=== PATIENT | male | born 1980 | race Caucasian/White ===

== ENCOUNTER 2024-05-20 21:55 | Emergency (ER) | payer SELFPAY ==
[~2024-05-20] VITALS: Ht 170.2 cm; Wt 82.0 kg
[2024-05-20 22:09] VITALS: TEMP 98.2; O2SAT 99
[2024-05-20 22:12] VITALS: BP 133/86; PULSE 103; RESP 18; O2SAT 99
== END 2024-05-20 23:50 | disposition left against medical advice (07) ==
LOC: ER 21:55
DX: M79.602 Pain in left arm (principal); Z53.21 Procedure and treatment not carried out due to patient leaving prior to being seen by health care provider
CPT/HCPCS: 93005; 99283